=== PATIENT | male | born 1985 | race Caucasian/White ===

== ENCOUNTER 2024-04-28 17:41 | Emergency (ER) | payer OTHER, SELFPAY ==
[2024-04-28 17:41] VITALS: BP 164/103; PULSE 95; RESP 20; TEMP 37.3; O2SAT 99
[2024-04-28 18:08] VITALS: BP 141/100; PULSE 93; RESP 20; O2SAT 99
--- NOTE | 2024-04-28 18:17 | ECG_ITS ---
Test Date: 2024-04-28 17:50:40 Measurements Intervals [place] Rate: 97 P: 6 NC: 168 QRS: 49 QRSD: 102 T: 18 QT: 350 QTc: 447 Interpretive Statements SINUS RHYTHM DELAYED PRECORDIAL R/S TRANSITION BASELINE ARTIFACT- II, III, AVF BORDERLINE ECG No previous ECG available for comparison Electronically Signed On 04-28-2024 20:46:21 CDT by Suleman Hahn D.O.
--- NOTE | 2024-04-28 18:34 | ED.URI ---
HPI - URI/Sore Throat General Chief Complaint: Chest Pain Stated Complaint: Chest Pain Time Seen by Provider: 04/28/24 17:50 Source: patient, family, RN notes reviewed and old records reviewed Mode of arrival: ambulatory Limitations: no limitations History of Present Illness HPI Narrative: 38 year old male accompanied by present to express care with complaints of chest tightness and discomfort with diaphoresis and feeling like heart racing shortness of breath since 5 pm today. Patient reports that he has had similar episodes on and off for the past 2 months. Family member reports that patient has MD appointment in 2 weeks. Patient reports no recent URI symptoms, fevers chills or sweat. Patient reports that pain started after eating this evening. Patient reports that he has some radiation of pain to his left arm with these episodes. Patient reports feeling better after being in clinic for awhile, is agreeable though for transfer to [facility] with family no ambulance. MD elicited complaint: other (chest tightness, discomfort, heart racing, dyspnea and diaphoresis,) Pertinent past history: other (intermittent episodes of left sided chest tightness discomfort) Onset (ago): hour(s) (episode today 1700 intermittent episodes 2 months) Consistency: intermittent and improved Pain scale (0-10): 4 Able to tolerate fluids by mouth: Yes Associated symptoms: diaphoresis, chest pain, nausea and other (heart racing) Related Data Home Medications Medication Instructions Recorded Confirmed No Home Medications 04/28/24 04/28/24 Allergies Allergy/AdvReac Type Severity Reaction Status Date / Time amoxicillin Allergy Intermediate Hives Verified 04/28/24 18:16 Review of Systems Review of Systems: CONSTITUTIONAL: Denies fever, chills, or sweats. EYES: Denies visual changes, redness, or discharge. ENT: Denies rhinorrhea, congestion, sore throat, or otalgia. CARDIOVASCULAR: Reports chest pressure discomfort, palpitations, no edema. RESPIRATORY: Denies cough some dyspnea with chest tightness. GASTROINTESTINAL: Denies abdominal pain, reports some nausea, no vomiting, or diarrhea. GENITOURINARY: Denies dysuria or hematuria. SKIN: Denies rash or itching. MUSCULOSKELETAL: Denies back pain, joint pain, or myalgia. NEUROLOGIC: Denies headache, numbness, or weakness. PSYCHIATRIC: admits to some anxiety or depression. All systems reviewed & are unremarkable except as noted in HPI and below PMFSH Past Medical History Medical History (Updated 04/29/24 @ 22:36 by Cleopatra Medina NP) History of dental problems Surgical History Surgical History (Updated 04/28/24 @ 20:01 by Cleopatra Medina NP) History of arthroscopic knee surgery Family History Family History (Updated 04/28/24 @ 20:03 by Cleopatra Medina NP) Other Adopted Social History Social History (Updated 04/28/24 @ 20:02 by Cleopatra Medina NP) Tobacco type: smokeless tobacco Smokeless tobacco user: chewing tobacco Alcohol intake: current Alcohol use details: 1-2 month Substance use type: does not use Living arrangements: with family Gender identity (if verbalized by the patient): Male Comments At time of signature, agree with nursing past medical, surgical, social and family history. There is no relevant family history pertinent to the presenting complaint Exam Narrative: GENERAL: Well-appearing, well-nourished, and in no acute distress. HEAD: Normocephalic, atraumatic. EYES: PERRLA and EOMI. ENT: Nares clear, no rhinorrhea or epistaxis. Mucous membranes moist. NECK: Supple.no lymphadenopathy, no JVD CHEST: Clear to auscultation. No respiratory distress, no tachypnea, no cough or any retractions, SAO2 99% on rooom air HEART: Regular rate and rhythm. No murmur heard. Normal peripheral pulses. ABDOMEN: Soft, nontender, nondistended, normal active bowel sounds. EXTREMITIES: Normal range of motion. No edema. SKIN: Warm, dry, no rash. NEURO: No focal def
[2024-04-28 18:40] LABS: EDINFLUASCREEN Negative; EDINFLUBSCREEN Negative
== END 2024-04-28 18:30 | disposition short-term general hospital (02) ==
PROVIDERS: Emergency Provider Registered Nurse
DX: R07.89 Other chest pain (principal); R00.2 Palpitations; F17.220 Nicotine dependence, chewing tobacco, uncomplicated
CPT/HCPCS: 87426; 87804; 93005; 99203; G0463